=== PATIENT | female | born 1945 | race Caucasian/White ===

== ENCOUNTER 2018-01-27 17:36 | Emergency (ER) | payer MEDICARE, BC ==
[2018-01-27 17:56] VITALS: BP 147/83; PULSE 69; RESP 18; TEMP 97.5; O2SAT 97
[2018-01-27] MEDS ORDERED: WARFARIN SODIUM 5 MG TAB ONE (18:57)
[2018-01-27 18:58] LABS: INR 2.36 (0.86-1.12)
[2018-01-27] MEDS ORDERED: WARFARIN SODIUM 5 MG TAB PO ONE (19:01)
== END 2018-01-27 19:06 | disposition home or self-care (01) | DRG 950 ==
LOC: ED 17:36
DX: Z79.01 Long term (current) use of anticoagulants (principal); I48.91 Unspecified atrial fibrillation
CPT/HCPCS: 36415; 85610; 99282; 99283; A9270-GY